=== PATIENT | male | born 1940 ===

== ENCOUNTER 2018-04-20 10:44 | Inpatient (IN) | payer OTHER ==
[~2018-04-20] VITALS: Ht 182.9 cm; Wt 102.1 kg
[2018-04-20] MEDS ORDERED: AMARYL PO (11:00)
[2018-04-20] MEDS ORDERED: LISINOPRIL30 MG PO (11:01)
[2018-04-20] MEDS ORDERED: FINASTERIDE5 MG PO (11:01)
[2018-04-20] MEDS ORDERED: NORVASC5 MG PO (11:01)
[2018-04-20] MEDS ORDERED: LASIX20 MG PO (11:02)
[2018-04-20] MEDS ORDERED: COUMADIN5 MG PO (11:02)
[2018-04-29] MEDS ORDERED: OMEPRAZOLE20 M1 PO (09:07)
[2018-04-29] MEDS ORDERED: INTESTINEX680 M1 PO (09:07)
[2018-04-29] MEDS ORDERED: PERCOCET 5-3251 EACH PO (09:07)
== END 2018-04-29 11:01 | disposition home or self-care (01) | DRG 331 ==
LOC: SURG 04-26 06:10 → O/R 04-26 06:10 → SURH 04-26 10:41 → SURG 04-26 14:06
PROVIDERS: Surgery
PROC: 07TC4ZZ Resection of Pelvis Lymphatic, Percutaneous Endoscopic Approach (ICD-10-PCS; 2018-04-26)
PROC: 0DJD8ZZ Inspection of Lower Intestinal Tract, Via Natural or Artificial Opening Endoscopic (ICD-10-PCS; 2018-04-26)
PROC: 0DTN4ZZ Resection of Sigmoid Colon, Percutaneous Endoscopic Approach (ICD-10-PCS; principal; 2018-04-26 12:15)
DX: C18.7 Malignant neoplasm of sigmoid colon (principal); R59.0 Localized enlarged lymph nodes

== ENCOUNTER 2018-04-25 05:45 | Day surgery (SDC) | payer OTHER ==
[~2018-04-25 05:45] MED LIST: AMARYL PO; COUMADIN5 MG PO; FINASTERIDE5 MG PO; LASIX20 MG PO; LISINOPRIL30 MG PO; NORVASC5 MG PO
== END 2018-04-25 09:50 | disposition home or self-care (01) ==
LOC: AMB-ENDOS 05:45
DX: C18.7 Malignant neoplasm of sigmoid colon (principal); K57.30 Diverticulosis of large intestine without perforation or abscess without bleeding